=== PATIENT | male | born 1940 | race Caucasian/White ===

== ENCOUNTER 2018-01-03 10:24 | Observation (INO) | payer MEDICARE ==
[~2018-01-03] VITALS: Ht 167.6 cm; Wt 75.0 kg
[~2018-01-03 10:24] MED LIST: ASPI325T PO; TOPR50TA PO; [UNRECOGNIZED DRUG - OTHER]
[2018-01-03 10:27] VITALS: BP 147/65; PULSE 48; RESP 14; TEMP 97.7; O2SAT 98
--- NOTE | 2018-01-03 11:29 | PD ---
HPI Chief Complaint: Neuro Symptoms/ Deficits Time Seen by Provider: 11:09 Travel History International Travel<30 days: No Contact w/Intl Traveler<30days: No Traveled to known affect area: No History of Present Illness HPI 77-year-old male presents to the emergency department for evaluation of possible strokelike symptoms that started 1.5 weeks ago, on December 23, 2017. He states that his symptoms started to improve, but then became worse again over the weekend. He reports garbled speech, difficulty speaking, facial droop, unsteady gait. He states he has fallen twice in the yard since symptoms have started. Denies syncope. Denies any headache. No new visual changes. He denies any chest pain or shortness breath. No abdominal pain. No nausea, vomiting, diarrhea. Patient has history of hypertension, high cholesterol, and diabetes. His at bedside states that he had a blocked carotid, but declined treatment for it previously. He denies any pain. No exacerbating or alleviating factors. Moderate severity. Patient took his ASA this morning. He is not on anticoagulants. [facility] Past Medical History Cardiovascular Problems: Yes (HEART MUR MUR) High Cholesterol: Yes Diabetes: Yes Patient Takes Glucophage: No Hypertension: Yes (NO MEDS STS DOESNT WORK) Past Surgical History Surgical History: No Previous Surgery Social History Alcohol Use: No Tobacco Use: No (STOPPED 1983) Substance Use: No Allergies-Medications (Allergen,Severity, Reaction): Coded Allergies: No Known Allergies (Verified , 05/15/10) Reported Meds & Prescriptions Reported Meds & Active Scripts Active Toprol Xl (Metoprolol Succinate) 50 Mg Tabcr 50 Mg PO DAILY Aspirin 325 Mg Tab 325 Mg PO DAILY Reported [[facility]] Review of Systems Except as stated in HPI: all other systems reviewed are Neg Physical Exam Narrative GENERAL: Well-nourished, well-developed male patient, afebrile. Patient is alert and oriented to person, place, time. SKIN: Focused skin assessment warm/dry. HEAD: Normocephalic. Atraumatic ENT: Mucosa pink and moist. No erythema or exudates. No uvular edema. No uvular , palatal, or tonsillar deviation. Airway patent. Nasal turbinates appear normal without nasal blood, purulent drainage or septal hematoma. Bilateral tympanic membranes clear without erythema or perforation. EYES: No scleral icterus. No injection or drainage. NECK: Supple, trachea midline. No JVD or lymphadenopathy. CARDIOVASCULAR: Regular rate and rhythm without murmurs, gallops, or rubs. Bilateral radial and pedal pulses are 2+ RESPIRATORY: Breath sounds equal bilaterally. No accessory muscle use. Lung sounds are clear to auscultation. GASTROINTESTINAL: Abdomen soft, non-tender, nondistended. MUSCULOSKELETAL: No cyanosis, or edema. Bilateral upper and lower extremity strength 5/5. All extremities are neurovascularly intact. BACK: Nontender without obvious deformity. No CVA tenderness. NEUROLOGICAL: Awake and alert. Motor and sensory grossly within normal limits. Five out of 5 muscle strength in all muscle groups. Patient has intermittent garbled speech, slurred speech. Finger to nose is normal bilaterally. Heel to zhang is normal bilaterally. Right facial droop noted. Data Data Last Documented VS Vital Signs Date Time Temp Pulse Resp B/P (MAP) Pulse Ox O2 Delivery O2 Flow Rate FiO2 01/03/18 13:25 56 17 125/58 (80) 96 Room Air 01/03/18 10:27 97.7 Orders Orders Electrocardiogram (01/03/18 11:21) Prothrombin Time / Inr (Pt) (01/03/18 11:21) Act Partial Throm Time (Ptt) (01/03/18 11:21) Complete Blood Count With Diff (01/03/18 11:21) Comprehensive Metabolic Panel (01/03/18 11:21) Creatine Kinase (Cpk) (01/03/18 11:21) Troponin I (01/03/18 11:21) Urinalysis - C+S If Indicated (01/03/18 11:21) Ct Brain W/O Iv Contrast(Rout) (01/03/18 11:21) Ecg Monitoring (01/03/18 11:21) Iv Access Insert/Monitor (01/03/18 11:21) Oximetry (01/03/18 11:21) Blood Glucose (01/03/18 11:21) Sodium Chloride 0.9% Flush (Ns Flush) (01/03/18 11:30) Magnesium (Mg) (01/03/18 11:29) Admit Order (Ed Use Only) (01/03/18 13:33) Labs Laboratory Tests Test 01/03/18 11:30 6/25/18 11:33 White Blood Count 8.8 TH/MM3 Red Blood Count 4.55 MIL/MM3 Hemoglobin 14.6 GM/DL Hematocrit 42.7 % Mean Corpuscular Volume 93.7 FL Mean Corpuscular Hemoglobin 32.0 PG Mean Corpuscular Hemoglobin Concent 34.1 % Red Cell Distribution Width 12.1 % Platelet Count 361 TH/MM3 Mean Platelet Volume 8.0 FL Neutrophils (%) (Auto) 69.1 % Lymphocytes (%) (Auto) 20.3 % Monocytes (%) (Auto) 8.3 % Eosinophils (%) (Auto) 1.8 % Basophils (%) (Auto) 0.5 % Neutrophils # (Auto) 6.1 TH/MM3 Lymphocytes # (Auto) 1.8 TH/MM3 Monocytes # (Auto) 0.7 TH/MM3 Eosinophils # (Auto) 0.2 TH/MM3 Basophils # (Auto) 0.0 TH/MM3 CBC Comment DIFF FINAL Differential Comment Prothrombin Time 10.7 SEC Prothromb Time International Ratio 1.1 RATIO Activated Partial Thromboplast Time 26.0 SEC Blood Urea Nitrogen 29 MG/DL Creatinine 1.25 MG/DL Random Glucose 178 MG/DL Total Protein 6.7 GM/DL Albumin 3.4 GM/DL Calcium Level 9.5 MG/DL Alkaline Phosphatase 73 U/L Aspartate Amino Transf (AST/SGOT) 18 U/L Alanine Aminotransferase (ALT/SGPT) 19 U/L Total Bilirubin 0.3 MG/DL Sodium Level 135 MEQ/L Potassium Level 4.8 MEQ/L Chloride Level 100 MEQ/L Carbon Dioxide Level 26.5 MEQ/L Anion Gap 9 MEQ/L Estimat Glomerular Filtration Rate 56 ML/MIN Magnesium Level 2.5 MG/DL Total Creatine Kinase 89 U/L Troponin I LESS THAN 0.02 NG/ML Urine Color YELLOW Urine Turbidity CLEAR Urine pH 6.0 Urine Specific [place] 1.016 Urine Protein NEG mg/dL Urine Glucose (UA) NEG mg/dL Urine Ketones NEG mg/dL Urine Occult Blood NEG Urine Nitrite NEG Urine Bilirubin NEG Urine Urobilinogen LESS THAN 2 mg/dL Urine Leukocyte Esterase NEG Urine RBC LESS THAN 1 /hpf Urine WBC LESS THAN 1 /hpf Urine Hyaline Casts 6 /lpf Urine Mucus FEW /lpf Microscopic Urinalysis Comment CATH-CULT NOT IND MDM Medical Decision Making Medical Screen Exam Complete: Yes Emergency Medical Condition: Yes Medical Record Reviewed: Yes Interpretation(s) Last Impressions Head CT 01/03/18 1121 Signed Impressions: CONCLUSION: 1. Moderate to severe white matter ischemic changes. Remote lacunar infarct le ft basal ganglia anteriorly and right thalamus. Differential Diagnosis CVA versus TIA versus intracranial hemorrhage versus electrolyte abnormality Narrative Course 77-year-old male presents to the emergency department for evaluation of stroke symptoms that have been ongoing for approximately 1.5 weeks. He has no history of stroke in the past. EKG shows sinus bradycardia, heart rate 50, right bundle branch block. CBC, CMP, magnesium, CK, troponin, PTT, PT/INR, CT of the brain are ordered and pending. CBC shows no acute abnormality. CMP shows no acute abnormality. Magnesium is 2.5. CK is 89. Troponin is less than 0.02. Coags are unremarkable. CT of the brain shows moderate to severe white matter ischemic changes, remote lucent R infarcts left basal ganglia anteriorly and right thalamus. [facility] is paged for admission for CVA. Dr. Siegel accepted admission. Diagnosis Primary Impression: CVA (cerebral vascular accident) Qualified Codes: I63.9 - Cerebral infarction, unspecified Admitting Information Admitting Physician Requests: Admit Cori Maier Jan 03, 2018 11:29
[2018-01-03] MEDS ORDERED: SODIUM CHLORIDE 0.9% FLUSH 10 ML FLUSH IVF PRN (11:30)
[2018-01-03 11:43] LABS: AUTOMATED NEUTROPHIL # 6.1 TH/MM3 (1.8-7.7); BASOPHIL % 0.5 % (0.0-2.0); EOSINOPHIL # 0.2 TH/MM3 (0-0.4); EOSINOPHIL % 1.8 % (0.0-4.0); HEMATOCRIT 42.7 % (39.0-51.0); HEMOGLOBIN 14.6 GM/DL (13.0-17.0); LYMPH % 20.3 % (9.0-44.0); LYMPHOCYTE # 1.8 TH/MM3 (1.0-4.8); MEAN CELL VOLUME 93.7 FL (80.0-100.0); MEAN CORPUSCULAR HGB CONC 34.1 % (32.0-36.0); MONO % 8.3 % (0.0-8.0); MONOCYTE # 0.7 TH/MM3 (0-0.9); NEUT % 69.1 % (16.0-70.0); PLATELET COUNT 361 TH/MM3 (150-450); RED BLOOD COUNT 4.55 MIL/MM3 (4.50-5.90); RED CELL DISTRIBUTION WIDTH 12.1 % (11.6-17.2); WHITE BLOOD COUNT 8.8 TH/MM3 (4.0-11.0)
[2018-01-03 11:54] LABS: INTERNATIONAL NORMALIZED RATIO 1.1 RATIO; PROTHROMBIN TIME - PATIENT 10.7 SEC (9.8-11.6)
[2018-01-03 11:54] LABS: BILIRUBIN, URINE NEG (NEG); BLOOD, URINE NEG (NEG); GLUCOSE,URINE NEG (NEG); HYALINE CAST, URINE 6 /lpf (RARE); KETONE, URINE NEG (NEG); MUCUS URINE FEW /lpf (OCC); NITRITE,URINE NEG (NEG); URINE COLOR YELLOW (YELLW/STRAW); URINE LEUKOCYTE ESTERASE NEG (NEG)
[2018-01-03 12:13] LABS: ALBUMIN 3.4 GM/DL (3.4-5.0); AST (GOT) 18 U/L (15-37); BICARBONATE 26.5 MEQ/L (21.0-32.0); BLOOD UREA NITROGEN 29 MG/DL (7-18); CALCIUM 9.5 MG/DL (8.5-10.1); CHLORIDE 100 MEQ/L (98-107); CREATININE 1.25 MG/DL (0.60-1.30); GLOMERULAR FILTRATION RATE 56 ML/MIN (>89); GLUCOSE,RANDOM 178 MG/DL (74-106); SODIUM (NA) 135 MEQ/L (136-145)
[2018-01-03 12:15] LABS: ALT (GPT) 19 U/L (12-78)
[2018-01-03 12:18] LABS: ALKALINE PHOSPHATASE 73 U/L (45-117); TOTAL BILIRUBIN ADULT 0.3 MG/DL (0.2-1.0); TOTAL PROTEIN 6.7 GM/DL (6.4-8.2); TROPONIN I LESS THAN 0.02 NG/ML (0.02-0.05)
--- NOTE | 2018-01-03 12:58 | RADRPT ---
EXAM DATE: 01/03/2018 12:55 PM EDT AGE/SEX: 77 years / Male INDICATIONS: Stroke like symptoms occurred over one week ago. Patient states slurred speech and faci al droop. CLINICAL DATA: This is the patient's initial encounter. Patient reports that signs and symptoms have been present for 1 week and indicates a pain score of 0/10. MEDICAL/SURGICAL HISTORY: Hypertension. Diabetes. None. RADIATION DOSE: 56.35 CTDI (mGy) COMPARISON: No prior exams available for comparison. TECHNIQUE: CT of the head without contrast. Using automated exposure control and adjustment of the mA and/or kV according to patient size, radiation dose was kept as low as reasonably achievable to ob tain optimal diagnostic quality images. DICOM format image data is available electronically for revi ew and comparison. FINDINGS: Cerebrum: The ventricles are normal for age. Remote small infarcts in the anterior left basal gangli a and right thalamus. Moderate to severe white matter ischemic change. No evidence of midline shift, mass lesion, hemorrhage or acute infarction. No extraaxial fluid collections are seen. Posterior Fossa: The cerebellum and brainstem are intact. The 4th ventricle is midline. The cerebe llopontine angle is unremarkable. Extracranial: The visualized portion of the orbits is intact. Skull: The calvaria is intact. No evidence of skull fracture. CONCLUSION: 1. Moderate to severe white matter ischemic changes. Remote lacunar infarct left basal ganglia anter iorly and right thalamus. Electronically signed by: Harinder Perez MD 01/03/2018 12:57 PM EDT
[2018-01-03 13:25] VITALS: BP 125/58; PULSE 56; RESP 17; O2SAT 96
[2018-01-03] MEDS ORDERED: GADODIAMIDE PF 287 MG/ML 5 ML VIAL (for RAD MRI) IVCONTRAST ONE (13:36)
--- NOTE | 2018-01-03 13:48 | HHI.HP ---
HPI Service [facility] Hospitalists Primary Care Physician Dr. Arenas Admission Diagnosis CVA Chief Complaint: garbled speech Travel History International Travel<30 Days: No Contact w/Intl Traveler <30 Da: No Traveled to Known Affected Are: No History of Present Illness This is a 77 year old male patient with a past medical history which includes carotid artery stenosis, chronic kidney disease, CVA in the past with no residual effects, diabetes mellitus, hyperlipidemia, hypertension and peripheral vascular disease. Patient presents to the emergency department for garbled speech, difficulty speaking, right sided facial droop, unsteady gait. Patient reports that over a week ago he was unable to speak, having difficultly with word finding, difficult working on his computer and difficult moving his right leg. Patient felt that he was getting better then his symptoms got worse again. Patient's feels that he has been getting progressively worse. Patient also reports that patient was told over a year ago that he needed to have endarterectomy but he refused to have the operation. Patient denies chest pain, SOB, fevers, chills, N/V/D/C. Review of Systems Constitutional: DENIES: Fatigue, Fever, Chills Respiratory: DENIES: Cough, Sputum production, Shortness of breath Cardiovascular: DENIES: Chest pain, Dyspnea on Exertion, Lower Extremity Edema Gastrointestinal: DENIES: Abdominal pain, Constipation, Diarrhea, Nausea, Vomiting Neurologic: COMPLAINS OF: Abnormal gait, Localized weakness, Speech Problems Psychiatric: DENIES: Anxiety, Confusion, Depression Past Family Social History Past Medical History carotid artery disease, chronic kidney disease, CVA in the past with residual, diabetes mellitus, hyperlipidemia, hypertension and peripheral vascular disease Past Surgical History Cataract surgery, injection and trigger points, tonsillectomy and adenoidectomy Reported Medications Toprol Xl (Metoprolol Succinate) 50 Mg Tabcr 50 Mg PO DAILY Aspirin 325 Mg Tab 325 Mg PO DAILY [facility] Allergies: Coded Allergies: No Known Allergies (Verified Allergy, Unknown, 01/03/18) Family History Congestive heart failure, lung cancer Social History lives with his Denies EtOH use Tobacco use history quit smoking 28 years ago. Prior to that patient smoked 3 PPD for 46 years Physical Exam Vital Signs Vital Signs Date Time Temp Pulse Resp B/P (MAP) Pulse Ox O2 Delivery O2 Flow Rate FiO2 01/03/18 13:25 56 17 125/58 (80) 96 Room Air 01/03/18 10:27 97.7 48 14 147/65 (92) 98 Physical Exam GENERAL: This is a 77 year old male patient with garbled speech, difficultly with word finding and right facial droop HEAD: Atraumatic. Normocephalic. No temporal or scalp tenderness. EYES: Extraocular motions intact. No scleral icterus. No injection or drainage. ENT: Nose without bleeding, purulent drainage or septal hematoma. Throat without erythema, tonsillar hypertrophy or exudate. Uvula midline. Airway patent. NECK: Trachea midline. No JVD or lymphadenopathy. Supple, nontender, no meningeal signs. CARDIOVASCULAR: Regular rate and rhythm RESPIRATORY: Clear to auscultation. Breath sounds equal bilaterally. GASTROINTESTINAL: Abdomen soft, non-tender, nondistended. No hepato-splenomegaly , or palpable masses. No guarding. MUSCULOSKELETAL: Extremities without clubbing, cyanosis, or edema. No joint tenderness, effusion, or edema noted. No calf tenderness. Negative Homans sign bilaterally. NEUROLOGICAL: Awake and alert. garbled speech, difficultly with word finding and left facial droop and right lower extremity weakness. Laboratory Laboratory Tests Test 01/03/18 11:30 01/03/18 11:33 White Blood Count 8.8 Red Blood Count 4.55 Hemoglobin 14.6 Hematocrit 42.7 Mean Corpuscular Volume 93.7 Mean Corpuscular Hemoglobin 32.0 Mean Corpuscular Hemoglobin Concent 34.1 Red Cell Distribution Width 12.1 Platelet Count 361 Mean Platelet Volume 8.0 Neutrophils (%) (Auto) 69.1 Lymphocytes (%) (Auto) 20.3 Monocytes (%) (Auto) 8.3 Eosinophils (%) (Auto) 1.8 Basophils (%) (Auto) 0.5 Neutrophils # (Auto) 6.1 Lymphocytes # (Auto) 1.8 Monocytes # (Auto) 0.7 Eosinophils # (Auto) 0.2 Basophils # (Auto) 0.0 CBC Comment DIFF FINAL Differential Comment Prothrombin Time 10.7 Prothromb Time International Ratio 1.1 Activated Partial Thromboplast Time 26.0 Blood Urea Nitrogen 29 Creatinine 1.25 Random Glucose 178 Total Protein 6.7 Albumin 3.4 Calcium Level 9.5 Alkaline Phosphatase 73 Aspartate Amino Transf (AST/SGOT) 18 Alanine Aminotransferase (ALT/SGPT) 19 Total Bilirubin 0.3 Sodium Level 135 Potassium Level 4.8 Chloride Level 100 Carbon Dioxide Level 26.5 Anion Gap 9 Estimat Glomerular Filtration Rate 56 Magnesium Level 2.5 Total Creatine Kinase 89 Troponin I LESS THAN 0.02 Urine Color YELLOW Urine Turbidity CLEAR Urine pH 6.0 Urine Specific [place] 1.016 Urine Protein NEG Urine Glucose (UA) NEG Urine Ketones NEG Urine Occult Blood NEG Urine Nitrite NEG Urine Bilirubin NEG Urine Urobilinogen LESS THAN 2 Urine Leukocyte Esterase NEG Urine RBC LESS THAN 1 Urine WBC LESS THAN 1 Urine Hyaline Casts 6 Urine Mucus FEW Microscopic Urinalysis Comment CATH-CULT NOT IND Result Diagram: 01/03/18 1130 01/03/18 1130 Imaging Last Impressions Head CT 01/03/18 1121 Signed Impressions: CONCLUSION: 1. Moderate to severe white matter ischemic changes. Remote lacunar infarct le ft basal ganglia anteriorly and right thalamus. Caprini VTE Risk Assessment Caprini VTE Risk Assessment: Mod/High Risk (score >= 2) Caprini Risk Assessment Model Point Value = 1 Point Value = 2 Point Value = 3 Point Value = 5 Age 41-60 Minor surgery BMI > 25 kg/m2 Swollen legs Varicose veins or History of unexplained or recurrent spontaneous Oral contraceptives or hormone replacement Sepsis (< 1 month) Serious lung disease, including pneumonia (< 1 month) Abnormal pulmonary function Acute myocardial infarction Congestive heart failure (< 1 month) History of inflammatory bowel disease Medical patient at bed rest Age 61-74 Arthroscopic surgery Major open surgery (> 45 min) Laparoscopic surgery (> 45 min) Malignancy Confined to bed (> 72 hours) Immobilizing plaster cast Central venous access Age >= 75 History of VTE Family history of VTE Factor V Leiden Prothrombin [id number] Lupus anticoagulant Anticardiolipin antibodies Elevated serum homocysteine Heparin-induced thrombocytopenia Other congenital or acquired thrombophilia Stroke (< 1 month) Elective arthroplasty Hip, pelvis, or leg fracture Acute spinal cord injury (< 1 month) Prophylaxis Regimen Total Risk Factor Score Risk Level Prophylaxis Regimen 0-1 Low Early ambulation 2 Moderate Order ONE of the following: *Sequential Compression Device (SCD) *Heparin 5000 units SQ BID 3-4 Higher Order ONE of the following medications: *Heparin 5000 units SQ TID *Enoxaparin/Lovenox 40 mg SQ daily (WT < 150 kg, CrCl > 30 mL/min) *Enoxaparin/Lovenox 30 mg SQ daily (WT < 150 kg, CrCl > 10-29 mL/min) *Enoxaparin/Lovenox 30 mg SQ BID (WT < 150 kg, CrCl > 30 mL/min) AND/OR *Sequential Compression Device (SCD) 5 or more Highest Order ONE of the following medications: *Heparin 5000 units SQ TID (Preferred with Epidurals) *Enoxaparin/Lovenox 40 mg SQ daily (WT < 150 kg, CrCl > 30 mL/min) *Enoxaparin/Lovenox 30 mg SQ daily (WT < 150 kg, CrCl > 10-29 mL/min) *Enoxaparin/Lovenox 30 mg SQ BID (WT < 150 kg, CrCl > 30 mL/min) AND *Sequential Compression Device (SCD) Assessment and Plan Problem List: (1) CVA (cerebral vascular accident) ICD Codes: I63.9 - Cerebral infarction, unspecified Status: Acute Plan: CVA patient has had a CVA in the past CT the head reviewed and reveals moderate to severe white matter ischemic changes. Remote lacunar infarct left basal ganglia anteriorly and right thalamus. MRI, MRA ordered Patient remained on bedrest with head of bed flat Nursing bedside swallow evaluation Aspirin 325 mg now and in a.m. Ultrasound bilateral carotid arteries Continuous telemetry monitoring Holter monitor 2D echocardiogram requested HTN Patient takes amlodipine 10 mg PO daily and lisinopril 10 mg PO daily at home We will hold home blood pressure medications allow permissive hypertension up to 220/120 Carotid artery disease Patient's reports he has chronic coronary artery disease and refused treatment in the past Ultrasound bilateral carotid arteries Diabetes mellitus Accu-Cheks before meals at bedtime with sliding scale insulin coverage Hemoglobin A1c in a.m. Hyperlipidemia Continue patient's home atorvastatin 40 mg p.o. nightly and gemfibrozil 600 mg p.o. twice daily Lipid panel in a.m. DVT prophylaxis with SCDs (2) HTN (hypertension) ICD Codes: I10 - Essential (primary) hypertension Assessment and Plan Patient examined. Assessment and plan formulated with Leslie Navarro PA-C. I agree with the above. acute vs subacute cva's. concern for severe left carotid dz neurology consult and likely vascular. Problem Qualifiers (1) CVA (cerebral vascular accident): Qualified Codes: I63.9 - Cerebral infarction, unspecified Leslie Navarro Jan 03, 2018 13:48 Victorino Siegel MD Jan 03, 2018 22:17
[2018-01-03] MEDS ORDERED: ATOR40TA16 PO (13:51)
[2018-01-03] MEDS ORDERED: ASPI-516 CHEW (13:51)
[2018-01-03] MEDS ORDERED: GEMF600T PO (13:51)
[2018-01-03] MEDS ORDERED: LISI10TA3 PO (13:51)
[2018-01-03] MEDS ORDERED: AMLO10TA2 PO (13:51)
[2018-01-03] MEDS ORDERED: SODIUM CHLOR 0.9% 1000 ML INJ 1,000 ML IV SCH (13:52)
[2018-01-03 14:00] VITALS: O2SAT 96
[2018-01-03] MEDS ORDERED: SODIUM CHLORIDE 0.9% FLUSH 10 ML FLUSH IV FLUSH PRN (14:00)
[2018-01-03] MEDS ORDERED: ACETAMINOPHEN 325 MG TAB PO PRN (14:00)
[2018-01-03] MEDS ORDERED: NALOXONE HCL 0.4 MG/ML AMP IV PUSH PRN (14:00)
[2018-01-03] MEDS ORDERED: MAGNESIUM HYDROXIDE SUSP 30 ML CUP PO PRN (14:00)
[2018-01-03] MEDS ORDERED: DEXTROSE 50% IN WATER 50 ML VIAL(D50) IV PUSH PRN (14:15)
[2018-01-03] MEDS ORDERED: GLUCAGON 1 MG/ML VIAL OTHER PRN (14:15)
[2018-01-03] MEDS ORDERED: ASPIRIN 325 MG TAB PO ONE (15:00)
[2018-01-03] MEDS ORDERED: TIMO0.5S30 EACH EYE (15:24)
[2018-01-03] MEDS ORDERED: METO50TA PO (15:24)
[2018-01-03] MEDS ORDERED: NOVORP2 SQ (15:24)
[2018-01-03 16:00] VITALS: BP 182/87; PULSE 60; RESP 18; TEMP 97
[2018-01-03] MEDS: GEMFIBROZIL 600 MG TAB PO SCH (16:45)
[2018-01-03] MEDS: CLOPIDOGREL 75 MG TAB PO SCH (16:45)
[2018-01-03] MEDS: INSULIN ASPART SUPPLEMENTAL SCALE SQ SCH ×2 (17:00→21:51)
--- NOTE | 2018-01-03 17:27 | ECHRPT ---
Indication: CONCLUSIONS The left ventricular systolic function is hyperdynamic with an estimated ejection fraction in the ra nge of 65- 70%. Normal left ventricular size. Mild concentric left ventricular hypertrophy. No regional wall motion abnormalities are present. Trace mitral valve regurgitation. BP: / HR: Rhythm: Sinus MEASUREMENTS (Male / Female) Normal Values Technical Quality:Poor 2D ECHO LV Diastolic Diameter PLAX 2.9 cm 4.2 - 5.9 / 3.9 - 5.3 cm LV Systolic Diameter PLAX 2.0 cm IVS Diastolic Thickness 1.5 cm 0.6 - 1.0 / 0.6 - 0.9 cm LVPW Diastolic Thickness 1.4 cm 0.6 - 1.0 / 0.6 - 0.9 cm LV Relative Wall Thickness 1.0 LVOT Diameter 1.9 cm M-MODE Aortic Root Diameter MM 2.6 cm AV Cusp Separation MM 1.9 cm DOPPLER AV Peak Velocity 136.0 cm/s AV Peak Gradient 7.4 mmHg LVOT Peak Velocity 115.0 cm/s LVOT Peak Gradient 5.3 mmHg AV Area Cont Eq pk 2.4 cm MV Area PHT 2.6 cm Mitral E Point Velocity 76.5 cm/s Mitral A Point Velocity 104.0 cm/s Mitral E to A Ratio 0.7 LV E' Lateral Velocity 6.2 cm/s Mitral E to LV E' Lateral Ratio 12.3 LV E' Septal Velocity 5.1 cm/s Mitral E to LV E' Septal Ratio 15.1 PV Peak Velocity 107.0 cm/s PV Peak Gradient 4.6 mmHg FINDINGS LEFT VENTRICLE The left ventricular systolic function is hyperdynamic with an estimated ejection fraction in the ra nge of 65- 70%. Normal left ventricular size. Mild concentric left ventricular hypertrophy. No regional wall motion abnormalities are present. RIGHT VENTRICLE Normal right ventricular size and systolic function. LEFT ATRIUM The left atrial size is normal. RIGHT ATRIUM The right atrial size is normal. ATRIAL SEPTUM Normal atrial septal thickness without atrial level shunting by limited color doppler interrogation. AORTA The aortic root and proximal ascending aorta are normal in size on limited imaging. MITRAL VALVE Structurally normal mitral valve. Trace mitral valve regurgitation. AORTIC VALVE Trileaflet aortic valve. No aortic valve stenosis or regurgitation. TRICUSPID VALVE Structurally normal tricuspid valve. No tricuspid valve stenosis or regurgitation. PULMONARY VALVE The pulmonary valve is not well visualized. VESSELS The inferior vena cava is normal in size. PERICARDIUM No pericardial effusion. Traci Hanson MD, FACC (Electronically Signed) Final Date:03 January 2018 17:25
[2018-01-03 18:28] LABS: FOLATE GREATER THAN 20.0 NG/ML (3.1-17.5)
--- NOTE | 2018-01-03 19:36 | RADRPT ---
EXAM DATE: 01/03/2018 7:07 PM EDT AGE/SEX: 77 years / Male INDICATIONS: CVA. Slurred speech with facial droop. CLINICAL DATA: This is the patient's initial encounter. Patient reports that signs and symptoms have been present for 1 day and indicates a pain score of 3/10. MEDICAL/SURGICAL HISTORY: Hypertension. Diabetes mellitus type II. None. COMPARISON: [facility], MRI BRAIN W & W/O CONTRAST, 01/03/2018. [facility], CTA CAROTID ARTERIES, 06/18/2017. . TECHNIQUE: 3D [id number] MRA was performed. Source images, multiplanar STS MIP, and 3D volum e MIP reconstructions were reviewed. FINDINGS: There is no significant flow related enhancement within the left intracranial internal carotid artery or within the left A1 segment. Right internal carotid artery is within normal limits without signifi cant narrowing. Right A1 segment is normal. The anterior cerebral arteries are symmetric. There is a patent anterior communicating artery. Right middle cerebral artery branches demonstrate normal flow r elated enhancement. There is minimal flow related enhancement within the left middle cerebral artery branches. Posterior circulation demonstrates patent vertebral arteries bilaterally. Basilar artery demonstrates no abnormality. There is a persistent circulation on the right. The mid right posterior cerebr al artery demonstrates a focal area of luminal narrowing just distal to the cerebral peduncle. Left p osterior cerebral arteries within normal limits. CONCLUSION: 1. High-grade stenosis versus occlusion of the intracranial left internal carotid artery and left A1 segment. There is also minimal flow related enhancement visualized within the left middle cerebral a rtery branches. 2. Focal area of luminal narrowing in the mid right posterior cerebral artery. 3. The left anterior cerebral artery is filling through the anterior communicating artery. Electronically signed by: Gasper Kellogg MD 01/03/2018 7:34 PM EDT
--- NOTE | 2018-01-03 20:01 | RADRPT ---
EXAM DATE: 01/03/2018 7:25 PM EDT AGE/SEX: 77 years / Male INDICATIONS: CVA. Slurred speech with facial droop. CLINICAL DATA: This is the patient's initial encounter. Patient reports that signs and symptoms have been present for 1 day and indicates a pain score of 2/10. MEDICAL/SURGICAL HISTORY: Hypertension. Diabetes mellitus type II. None. COMPARISON: No prior exams available for comparison. TECHNIQUE: Multiplanar, multisequence examination of the brain was performed without and with 20 ml O mniscan (gadodiamide) contrast as a single exam dose. FINDINGS: Cerebrum: There is mild generalized atrophy with ventricular size within normal limits given the degr ee of atrophy. No midline shift, mass lesion, or hemorrhage. There are multifocal areas of restricte d diffusion representing recent ischemia in the left basal ganglia and left periventricular white mat ter. No extraaxial fluid collections are seen. The pituitary gland and suprasellar cistern are norm al in configuration. There is lack of normal flow void within the left internal carotid artery. White Matter: There is severe periventricular and subcortical white matter signal change. Posterior Fossa: The cerebellum and brainstem demonstrate no acute abnormality. The 4th ventricle is midline. The cerebellopontine angle is within normal limits. The cerebellar tonsils are normal in p osition. Diffusion Imaging: There are multifocal areas of restricted diffusion in the left frontal periventri cular white matter, left temporal lobe periventricular white matter and left basal ganglia. The large st confluent area measures slightly greater than 3 cm. Post contrast: There is asymmetric enhancement in the left basal ganglia adjacent to the areas of isc hemia. Extracranial: The visualized sinuses are clear. CONCLUSION: 1. Multifocal areas of restricted diffusion representing recent ischemia in the left periventricular region and left basal ganglia. Signal change within the left internal carotid artery suggest vascula r occlusion. 2. Nonspecific area of enhancement in the left basal ganglia adjacent to the areas of infarct. This could be related to the a recent ischemia but suggest attention to this at follow-up imaging. 3. Severe chronic periventricular white matter changes representing chronic microvascular ischemic c hange. Electronically signed by: Gasper Kellogg MD 01/03/2018 8:00 PM EDT
[2018-01-03 20:06] VITALS: BP 168/72; PULSE 68; RESP 18; TEMP 98.8; O2SAT 98
[2018-01-03] MEDS: DOCUSATE SODIUM 50 MG/SENNA 8.6 MG TAB PO SCH (21:40)
[2018-01-03] MEDS: ATORVASTATIN 40 MG TAB PO SCH (21:40)
[2018-01-03] MEDS: TIMOLOL MALEATE 0.5% OPHT SOLN 5 ML BTL EACH EYE SCH (21:40)
[2018-01-03] MEDS: SODIUM CHLOR 0.9% 1000 ML INJ 1,000 ML IV SCH (21:53)
[2018-01-03] MEDS: SODIUM CHLORIDE 0.9% FLUSH 10 ML FLUSH IV FLUSH SCH (21:53)
--- NOTE | 2018-01-03 22:22 | EKG ---
Date Performed: 01/03/2018 Time Performed: 10:55:47 PTAGE: 77 years EKG: SINUS BRADYCARDIA RIGHT BUNDLE BRANCH BLOCK ABNORMAL ECG INTERPRETATION BASED ON A DEFAULT AGE OF 40 YEARS PREVIOUS TRACING : 05/15/2010 11.27 Since the previous tracing, rate has decreased otherw ise no change DOCTOR: Michael Sosa Interpretating Date/Time 01/03/2018 22:22:17
--- NOTE | 2018-01-03 23:17 | RADRPT ---
EXAM DATE: 01/03/2018 8:42 PM EDT AGE/SEX: 77 years / Male INDICATIONS: . Slurred speech with facial droop. CLINICAL DATA: This is the patient's initial encounter. Patient reports that signs and symptoms have been present for 1 day and indicates a pain score of 1/10. MEDICAL/SURGICAL HISTORY: Hypertension. Diabetes mellitus type II. None. COMPARISON: No prior exams available for comparison. TECHNIQUE: 20 ml Omniscan (gadodiamide) contrast infused MRA (single exam dose) of the extracranial circulation was performed using a neurovascular coil. Postprocessing was performed, including rotat ing sub-volume maximum intensity projections of each carotid artery, rotating full-volume maximum int ensity projections of both carotid arteries, sagittal and coronal sliding thin-slab reformations of e ach carotid artery, and left oblique sliding thin-slab reformation through the aortic arch to include the origin of the arch branch vessels. FINDINGS: Aortic Arch : There is a three-vessel origin of the great vessels from the aorta. There is occlusi on of the left common carotid artery 1.8 cm from its origin. This does appear to be some stenosis at the left common carotid artery origin. Right Carotid : The common carotid artery is intact. There is plaque at the carotid bulb region. Th ere appears to be at least a 50% narrowing at the proximal right internal carotid artery. The externa l carotid artery is intact. Left Carotid : There is occlusion of the proximal left common carotid artery 1.8 cm from its origin. Vertebrals : The vertebral arteries have a symmetric diameter. No stenotic lesions are seen. CONCLUSION: 1. 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 2. At least 50% stenosis of the right proximal internal carotid artery at the carotid bulb region. Percent stenosis is calculated using the diameter of the stenotic region over the diameter of the nor mal distal internal carotid artery Electronically signed by: Gasper Conley MD 01/03/2018 11:16 LORINT
[2018-01-04] VITALS (10 sets, daily range): BP systolic 139–216; BP diastolic 72–100; PULSE 57–101; RESP 16–20; TEMP 97.7–98.5; O2SAT 94–98
[2018-01-04] MEDS: SODIUM CHLOR 0.9% 1000 ML INJ 1,000 ML IV SCH ×4 (05:58→22:31)
[2018-01-04 06:29] LABS: AUTOMATED NEUTROPHIL # 4.2 TH/MM3 (1.8-7.7); BASOPHIL % 0.6 % (0.0-2.0); EOSINOPHIL # 0.2 TH/MM3 (0-0.4); EOSINOPHIL % 3.1 % (0.0-4.0); HEMATOCRIT 42.1 % (39.0-51.0); HEMOGLOBIN 14.3 GM/DL (13.0-17.0); LYMPH % 27.7 % (9.0-44.0); LYMPHOCYTE # 2.1 TH/MM3 (1.0-4.8); MEAN CELL VOLUME 93.4 FL (80.0-100.0); MEAN CORPUSCULAR HEMOGLOBIN 31.8 PG (27.0-34.0); MEAN CORPUSCULAR HGB CONC 34.1 % (32.0-36.0); MONO % 12.2 % (0.0-8.0); MONOCYTE # 0.9 TH/MM3 (0-0.9); NEUT % 56.4 % (16.0-70.0); PLATELET COUNT 316 TH/MM3 (150-450); RED BLOOD COUNT 4.51 MIL/MM3 (4.50-5.90); RED CELL DISTRIBUTION WIDTH 12.4 % (11.6-17.2); WHITE BLOOD COUNT 7.4 TH/MM3 (4.0-11.0)
--- NOTE | 2018-01-04 07:07 | HHI.PR ---
Subjective Remarks sr Objective Vital Signs Date Time Temp Pulse Resp B/P (MAP) Pulse Ox O2 Delivery O2 Flow Rate FiO2 01/04/18 05:24 98.4 78 18 158/82 (107) 96 01/04/18 01:57 97.9 57 16 165/72 (103) 95 01/03/18 20:06 98.8 68 18 168/72 (104) 98 01/03/18 16:00 97.0 60 18 182/87 (118) 01/03/18 14:00 96 21 01/03/18 13:25 56 17 125/58 (80) 96 Room Air 01/03/18 10:27 97.7 48 14 147/65 (92) 98 I/O 01/03/18 01/03/18 01/03/18 01/04/18 01/04/18 01/04/18 07:00 15:00 23:00 07:00 15:00 23:00 Intake Total 200 ml 200 ml Balance 200 ml 200 ml Intake Oral 200 ml 200 ml Result Diagram: 01/04/18 0540 01/03/18 1130 Objective Remarks vff mild slurred speech 5/5 rue rle Assessment and Plan Assessment and Plan imp left cca occluded no flow left mca mult cva deep left labs ok ldl pend 50% right ica keep hob down ivf and bp up may be able to dc tomorrow late Sam Fjaardo MD Jan 04, 2018 07:07
[2018-01-04 07:13] LABS: BICARBONATE 24.3 MEQ/L (21.0-32.0); CALCIUM 8.7 MG/DL (8.5-10.1); CHOLESTEROL/ HDL RATIO 3.22 RATIO; CREATININE 0.93 MG/DL (0.60-1.30)
--- NOTE | 2018-01-04 08:08 | MB ---
cc: Sam Fajardo MD DATE: 01/03/2018 HISTORY OF PRESENT ILLNESS: This is a 77-year-old right-handed man with insulin-dependent diabetes, hypercholesterolemia. He does take aspirin 325 a day and he has a known 90% left carotid artery stenosis and 70% on the right. He does not take a statin. He was evidently going to try to schedule surgery, but had not get it done yet. Nevertheless, about 8 days ago, he began to have troubles talking, seemed to get better for 4 days and then worse for 4 days. He never had any vision loss in one eye, asymmetrical weakness or numbness. He denies any headache, chest pain or palpitations. REVIEW OF SYSTEMS: He denies any hypertension, NH, stent, angioplasty, AFib, Coumadin, renal, hepatic or pulmonary disease, thyroid disease, lupus, ulcer, cancer, seizure or stroke. SOCIAL HISTORY: Nonsmoker, drinker, lives with his . FAMILY HISTORY: Positive for cancer in his father , stroke. ALLERGIES: NO KNOWN DRUG ALLERGIES. MEDICATIONS: Toprol, aspirin 325. PHYSICAL EXAMINATION: VITAL SIGNS: Afebrile, , 14, 147/65. NECK: There is a very loud and low pitched right carotid bruit, nothing on the left. HEART: Regular rhythm with a 1/6 systolic ejection murmur. NEUROLOGIC: Pupils are equal. Visual bower are full. Extraocular movements intact, without nystagmus. Face has a slight right facial droop, then he moves fairly well. Tongue was midline. Face sensation was intact to pinprick. There is no drift. He has normal strength in upper and lower extremities bilaterally. DTRs are trace throughout. Toes downgoing bilaterally. Pinprick is intact throughout. He is [id number]. He can name, repeat and calculate well. Speech is just slightly slurred. LABORATORY DATA: CBC is normal. UA is negative on 01/03. BMP essentially unremarkable. Glucose 178. LFTs are normal. CPK is normal. Troponins negative. Albumin is normal. Coags normal. IMAGING: He had a CAT scan of his brain, showed some white matter changes and remote left basal ganglia infarct. ECHOCARDIOGRAM: Shows sinus rhythm. IMPRESSION: Likely a small left infarct about a week ago. He has some known carotid disease. His CT, I reviewed, and shows an old left fairly large by the head of the caudate infarct, lateral to the head of the caudate. Also, an old right thalamic infarct and some other white matter changes also bilaterally. PLAN: History of carotid disease, looks like a stroke here. For now, we will put him on Plavix. He was started on Lipitor. We will check his LDL and keep him on aspirin for now and check an MRI of the brain, MRA [place] and neck and echocardiogram. I will be following him within the hospital. MD CHRIS Avery/NIKIHL , 04:41 PM , 05:31 PM
[2018-01-04] MEDS: INSULIN ASPART SUPPLEMENTAL SCALE SQ SCH ×4 (09:25→22:31)
--- NOTE | 2018-01-04 09:34 | HHI.PR ---
Subjective Remarks Patient reports feeling about the same as yesterday continues to have slight right facial droop and difficult with some word finding Objective Vitals Vital Signs Date Time Temp Pulse Resp B/P (MAP) Pulse Ox O2 Delivery O2 Flow Rate FiO2 01/04/18 08:50 97 21 01/04/18 08:00 97.7 83 20 139/84 (102) 96 01/04/18 05:24 98.4 78 18 158/82 (107) 96 01/04/18 01:57 97.9 57 16 165/72 (103) 95 01/03/18 20:06 98.8 68 18 168/72 (104) 98 01/03/18 16:00 97.0 60 18 182/87 (118) 01/03/18 14:00 96 21 01/03/18 13:25 56 17 125/58 (80) 96 Room Air 01/03/18 10:27 97.7 48 14 147/65 (92) 98 Result Diagram: 01/04/18 0540 01/04/18 0540 Other Results Laboratory Tests Test 01/03/18 11:30 01/03/18 11:33 01/04/18 05:40 White Blood Count 8.8 TH/MM3 7.4 TH/MM3 Red Blood Count 4.55 MIL/MM3 4.51 MIL/MM3 Hemoglobin 14.6 GM/DL 14.3 GM/DL Hematocrit 42.7 % 42.1 % Mean Corpuscular Volume 93.7 FL 93.4 FL Mean Corpuscular Hemoglobin 32.0 PG 31.8 PG Mean Corpuscular Hemoglobin Concent 34.1 % 34.1 % Red Cell Distribution Width 12.1 % 12.4 % Platelet Count 361 TH/MM3 316 TH/MM3 Mean Platelet Volume 8.0 FL 8.0 FL Neutrophils (%) (Auto) 69.1 % 56.4 % Lymphocytes (%) (Auto) 20.3 % 27.7 % Monocytes (%) (Auto) 8.3 % 12.2 % Eosinophils (%) (Auto) 1.8 % 3.1 % Basophils (%) (Auto) 0.5 % 0.6 % Neutrophils # (Auto) 6.1 TH/MM3 4.2 TH/MM3 Lymphocytes # (Auto) 1.8 TH/MM3 2.1 TH/MM3 Monocytes # (Auto) 0.7 TH/MM3 0.9 TH/MM3 Eosinophils # (Auto) 0.2 TH/MM3 0.2 TH/MM3 Basophils # (Auto) 0.0 TH/MM3 0.0 TH/MM3 CBC Comment DIFF FINAL DIFF FINAL Differential Comment Prothrombin Time 10.7 SEC Prothromb Time International Ratio 1.1 RATIO Activated Partial Thromboplast Time 26.0 SEC Blood Urea Nitrogen 29 MG/DL 22 MG/DL Creatinine 1.25 MG/DL 0.93 MG/DL Random Glucose 178 MG/DL 119 MG/DL Total Protein 6.7 GM/DL Albumin 3.4 GM/DL Calcium Level 9.5 MG/DL 8.7 MG/DL Alkaline Phosphatase 73 U/L Aspartate Amino Transf (AST/SGOT) 18 U/L Alanine Aminotransferase (ALT/SGPT) 19 U/L Total Bilirubin 0.3 MG/DL Sodium Level 135 MEQ/L 141 MEQ/L Potassium Level 4.8 MEQ/L 4.3 MEQ/L Chloride Level 100 MEQ/L 108 MEQ/L Carbon Dioxide Level 26.5 MEQ/L 24.3 MEQ/L Anion Gap 9 MEQ/L 9 MEQ/L Estimat Glomerular Filtration Rate 56 ML/MIN 78 ML/MIN Magnesium Level 2.5 MG/DL Total Creatine Kinase 89 U/L Troponin I LESS THAN 0.02 NG/ML Vitamin B12 Level GREATER THAN 2000 PG/ML Folate GREATER THAN 20.0 NG/ML Free Thyroxine 1.00 NG/DL Thyroid Stimulating Hormone 3rd Gen 0.610 uIU/ML Urine Color YELLOW Urine Turbidity CLEAR Urine pH 6.0 Urine Specific [place] 1.016 Urine Protein NEG mg/dL Urine Glucose (UA) NEG mg/dL Urine Ketones NEG mg/dL Urine Occult Blood NEG Urine Nitrite NEG Urine Bilirubin NEG Urine Urobilinogen LESS THAN 2 mg/dL Urine Leukocyte Esterase NEG Urine RBC LESS THAN 1 /hpf Urine WBC LESS THAN 1 /hpf Urine Hyaline Casts 6 /lpf Urine Mucus FEW /lpf Microscopic Urinalysis Comment CATH-CULT NOT IND Triglycerides Level 163 MG/DL Cholesterol Level 142 MG/DL LDL Cholesterol 65 MG/DL HDL Cholesterol 44.0 MG/DL Cholesterol/HDL Ratio 3.22 RATIO Imaging Last Impressions Head CT 01/03/18 1121 Signed Impressions: CONCLUSION: 1. Moderate to severe white matter ischemic changes. Remote lacunar infarct le ft basal ganglia anteriorly and right thalamus. Objective Remarks GENERAL: This is a 77 year old male patient with right facial droop and difficultly with word finding HEAD: Atraumatic. Normocephalic. No temporal or scalp tenderness. EYES: Extraocular motions intact. No scleral icterus. No injection or drainage. CARDIOVASCULAR: Regular rate and rhythm RESPIRATORY: Clear to auscultation. Breath sounds equal bilaterally. GASTROINTESTINAL: Abdomen soft, non-tender, nondistended. No hepato-splenomegaly , or palpable masses. No guarding. MUSCULOSKELETAL: Extremities without clubbing, cyanosis, or edema. No joint tenderness, effusion, or edema noted. No calf tenderness. Negative Homans sign bilaterally. NEUROLOGICAL: Awake and alert. difficultly with word finding and slight right facial droop A/P Problem List: (1) CVA (cerebral vascular accident) ICD Codes: I63.9 - Cerebral infarction, unspecified Status: Acute Plan: CVA patient has had a CVA in the past CT the head reviewed and reveals moderate to severe white matter ischemic changes. Remote lacunar infarct left basal ganglia anteriorly and right thalamus. MRI reviewed and reveals 1. Multifocal areas of restricted diffusion representing recent ischemia in the left periventricular region and left basal ganglia. Signal change within the left internal carotid artery suggest vascular occlusion. 2. Nonspecific area of enhancement in the left basal ganglia adjacent to the areas of infarct. This could be related to the a recent ischemia but suggest attention to this at follow-up imaging. 3. Severe chronic periventricular white matter changes representing chronic microvascular ischemic change. MRA reviewed and reveals 1. High-grade stenosis versus occlusion of the intracranial left internal carotid artery and left A1 segment. There is also minimal flow related enhancement visualized within the left middle cerebral artery branches. 2. Focal area of luminal narrowing in the mid right posterior cerebral artery. 3. The left anterior cerebral artery is filling through the anterior communicating artery. Neck MRA reviewed and reveals 1 occlusion of the left common carotid artery 1.8 cm from its origin. 2. at least 50% stenosis of the right proximal internal carotid artery at the carotid bulb region. Patient remained on bedrest with head of bed flat Aspirin 325 mg now and in a.m. Continuous telemetry monitoring Holter monitor 2D echocardiogram 01/03/18: The left ventricular systolic function is hyperdynamic with an estimated ejection fraction in the range of 65-70%. Normal left ventricular size. Mild concentric left ventricular hypertrophy. No regional wall motion abnormalities are present. Trace mitral valve regurgitation. Speech therapy recommending reg diet with thin liquids Consult neurology, appreciate recommendations: started patient on Plavix, recommend HOB flat and permissive HTN for today possible DC tomorrow evening HTN Patient takes amlodipine 10 mg PO daily and lisinopril 10 mg PO daily at home We will hold home blood pressure medications allow permissive hypertension up to 220/120 Carotid artery disease Patient's reports he has chronic coronary artery disease and refused treatment in the past Neck MRA reviewed and reveals 1 occlusion of the left common carotid artery 1.8 cm from its origin. 2. at least 50% stenosis of the right proximal internal carotid artery at the carotid bulb region. Patient will need close outpatient follow up of carotid stenosis Diabetes mellitus Accu-Cheks before meals at bedtime with sliding scale insulin coverage Hemoglobin A1c in a.m. Hyperlipidemia Continue patient's home atorvastatin 40 mg p.o. nightly and gemfibrozil 600 mg p.o. twice daily Lipid panel reviewed and reveals triglycerides 163 total cholesterol 142 LDL 65 HDL 44 DVT prophylaxis with SCDs (2) HTN (hypertension) ICD Codes: I10 - Essential (primary) hypertension Assessment and Plan Patient examined. Assessment and plan formulated with Leslie Navarro PA-C. I agree with the above. acute cva. left carotid occlusion. discussed with neuro hob flat and ivf with possible dc tomorrow on plavix/asa. Problem Qualifiers (1) CVA (cerebral vascular accident): Qualified Codes: I63.9 - Cerebral infarction, unspecified Leslie Navarro Jan 04, 2018 09:34 Victorino Siegel MD Jan 04, 2018 15:47
[2018-01-04] MEDS ORDERED: PLAV75TA29 PO (09:36)
--- NOTE | 2018-01-04 09:37 | HHI.FF ---
Face to Face Verification Diagnosis: (1) Carotid stenosis (2) CVA (cerebral vascular accident) (3) HTN (hypertension) Speech Therapy Order: To Improve: Speech and communication skills, Cognitive skills, Swallowing Home Health Nursing Order: Medical education Signs/symptoms of disease process Medication education-adverse effect Nursing assessment with vital signs Computer Applications Developer Order: To Evaluate: Living conditions/environment, Support services Order: To Provide: Long range planning, Community services I have seen patient Kev Knapp on 01/04/18. My clinical findings support the need for the requested home health care services because: Med compliance is questionable Limited ability to care for self Impaired cognition/judgement I certify that my clinical findings support that this patient is homebound because: Unsafe to leave home unassisted Leslie Navarro Jan 04, 2018 09:37 Victorino Siegel MD Jan 05, 2018 10:43
--- NOTE | 2018-01-04 09:38 | HHI.DCPOC ---
Discharge Care Plan Diagnosis: (1) CVA (cerebral vascular accident) (2) HTN (hypertension) (3) Carotid stenosis Goals to Promote Your Health * To prevent worsening of your condition and complications * To maintain your health at the optimal level Directions to Meet Your Goals Take your medications as prescribed Follow your dietary instruction Follow activity as directed Keep your appointments as scheduled Take your immunizations and boosters as scheduled If your symptoms worsen call your PCP, if no PCP go to Urgent Care Center or Emergency Room Smoking is Dangerous to Your Health. Avoid second hand smoke Call the 24-hour hour crisis hotline for domestic abuse at Leslie Navarro Jan 04, 2018 09:38
[2018-01-04] MEDS: DOCUSATE SODIUM 50 MG/SENNA 8.6 MG TAB PO SCH ×2 (11:01→20:58)
[2018-01-04] MEDS: GEMFIBROZIL 600 MG TAB PO SCH ×2 (11:01→16:00)
[2018-01-04] MEDS: ASPIRIN 325 MG TAB PO SCH (11:01)
[2018-01-04] MEDS: CLOPIDOGREL 75 MG TAB PO SCH (11:02)
[2018-01-04] MEDS: SODIUM CHLORIDE 0.9% FLUSH 10 ML FLUSH IV FLUSH SCH ×2 (11:02→20:58)
[2018-01-04] MEDS: TIMOLOL MALEATE 0.5% OPHT SOLN 5 ML BTL EACH EYE SCH ×2 (11:03→20:58)
[2018-01-04] MEDS: ATORVASTATIN 40 MG TAB PO SCH (20:58)
[2018-01-04] MEDS ORDERED: ENALAPRILAT 1.25 MG/ML VIAL IV PRN (23:00)
[2018-01-05 02:25] VITALS: PULSE 69
[2018-01-05 03:44] VITALS: BP 131/65; PULSE 67; RESP 17; TEMP 98.5; O2SAT 97
[2018-01-05] MEDS: SODIUM CHLOR 0.9% 1000 ML INJ 1,000 ML IV SCH (04:26)
[2018-01-05 07:00] VITALS: PULSE 68
[2018-01-05 07:14] VITALS: BP 188/86; PULSE 79; RESP 12; TEMP 97.8; O2SAT 97
--- NOTE | 2018-01-05 07:44 | HHI.PR ---
Subjective Remarks sr Objective Vital Signs Date Time Temp Pulse Resp B/P (MAP) Pulse Ox O2 Delivery O2 Flow Rate FiO2 01/05/18 07:14 97.8 79 12 188/86 (120) 97 01/05/18 03:44 98.5 67 17 131/65 (87) 97 01/05/18 02:25 69 01/04/18 23:31 98.4 77 17 149/80 (103) 97 01/04/18 20:03 96 200/91 (127) 01/04/18 20:00 98 21 01/04/18 19:44 98.5 101 16 216/100 (138) 98 01/04/18 16:00 98.3 82 20 163/79 (107) 96 01/04/18 12:00 97.8 93 19 178/72 (107) 94 01/04/18 08:50 97 21 01/04/18 08:00 97.7 83 20 139/84 (102) 96 I/O 01/04/18 01/04/18 01/04/18 01/05/18 01/05/18 01/05/18 07:00 15:00 23:00 07:00 15:00 23:00 Intake Total 200 ml Output Total 450 ml Balance 200 ml -450 ml Intake Oral 200 ml Output Urine Total 450 ml # Bowel Movements 0 Result Diagram: 01/04/18 0540 01/04/18 0540 Objective Remarks vff nlspeech 5/ rue rle Assessment and Plan Assessment and Plan imp left cca occluded no flow left mca mult cva deep left labs ok ldl nl 50% right ica echo nl hob up oob can dc at noon if stable walking around this am fu my office 3 weeks fu holter dc asa in 3 days Sam Fajardo MD Jan 05, 2018 07:44
[2018-01-05] MEDS: CLOPIDOGREL 75 MG TAB PO SCH (08:34)
[2018-01-05] MEDS: DOCUSATE SODIUM 50 MG/SENNA 8.6 MG TAB PO SCH (08:34)
[2018-01-05] MEDS: GEMFIBROZIL 600 MG TAB PO SCH (08:34)
[2018-01-05] MEDS: ASPIRIN 325 MG TAB PO SCH (08:35)
[2018-01-05] MEDS: INSULIN ASPART SUPPLEMENTAL SCALE SQ SCH ×2 (08:35→13:53)
[2018-01-05] MEDS: TIMOLOL MALEATE 0.5% OPHT SOLN 5 ML BTL EACH EYE SCH (08:37)
[2018-01-05] MEDS: SODIUM CHLORIDE 0.9% FLUSH 10 ML FLUSH IV FLUSH SCH (09:00)
[2018-01-05] MEDS ORDERED: LISINOPRIL 10 MG TAB PO SCH (09:45)
[2018-01-05 09:48] VITALS: BP 172/82; PULSE 78
--- NOTE | 2018-01-05 09:48 | HHI.PR ---
Subjective Remarks Pt without any new complaints He is anxious to go home today Pt ambulated with PT yesterday with no recommendations for home PT Objective Vitals Vital Signs Date Time Temp Pulse Resp B/P (MAP) Pulse Ox O2 Delivery O2 Flow Rate FiO2 01/05/18 07:14 97.8 79 12 188/86 (120) 97 01/05/18 03:44 98.5 67 17 131/65 (87) 97 01/05/18 02:25 69 01/04/18 23:31 98.4 77 17 149/80 (103) 97 01/04/18 20:03 96 200/91 (127) 01/04/18 20:00 98 21 01/04/18 19:44 98.5 101 16 216/100 (138) 98 01/04/18 16:00 98.3 82 20 163/79 (107) 96 01/04/18 12:00 97.8 93 19 178/72 (107) 94 Result Diagram: 01/04/18 0540 01/04/18 0540 Other Results Laboratory Tests Test 01/03/18 11:30 01/03/18 11:33 01/04/18 05:40 White Blood Count 8.8 TH/MM3 7.4 TH/MM3 Red Blood Count 4.55 MIL/MM3 4.51 MIL/MM3 Hemoglobin 14.6 GM/DL 14.3 GM/DL Hematocrit 42.7 % 42.1 % Mean Corpuscular Volume 93.7 FL 93.4 FL Mean Corpuscular Hemoglobin 32.0 PG 31.8 PG Mean Corpuscular Hemoglobin Concent 34.1 % 34.1 % Red Cell Distribution Width 12.1 % 12.4 % Platelet Count 361 TH/MM3 316 TH/MM3 Mean Platelet Volume 8.0 FL 8.0 FL Neutrophils (%) (Auto) 69.1 % 56.4 % Lymphocytes (%) (Auto) 20.3 % 27.7 % Monocytes (%) (Auto) 8.3 % 12.2 % Eosinophils (%) (Auto) 1.8 % 3.1 % Basophils (%) (Auto) 0.5 % 0.6 % Neutrophils # (Auto) 6.1 TH/MM3 4.2 TH/MM3 Lymphocytes # (Auto) 1.8 TH/MM3 2.1 TH/MM3 Monocytes # (Auto) 0.7 TH/MM3 0.9 TH/MM3 Eosinophils # (Auto) 0.2 TH/MM3 0.2 TH/MM3 Basophils # (Auto) 0.0 TH/MM3 0.0 TH/MM3 CBC Comment DIFF FINAL DIFF FINAL Differential Comment Prothrombin Time 10.7 SEC Prothromb Time International Ratio 1.1 RATIO Activated Partial Thromboplast Time 26.0 SEC Blood Urea Nitrogen 29 MG/DL 22 MG/DL Creatinine 1.25 MG/DL 0.93 MG/DL Random Glucose 178 MG/DL 119 MG/DL Total Protein 6.7 GM/DL Albumin 3.4 GM/DL Calcium Level 9.5 MG/DL 8.7 MG/DL Alkaline Phosphatase 73 U/L Aspartate Amino Transf (AST/SGOT) 18 U/L Alanine Aminotransferase (ALT/SGPT) 19 U/L Total Bilirubin 0.3 MG/DL Sodium Level 135 MEQ/L 141 MEQ/L Potassium Level 4.8 MEQ/L 4.3 MEQ/L Chloride Level 100 MEQ/L 108 MEQ/L Carbon Dioxide Level 26.5 MEQ/L 24.3 MEQ/L Anion Gap 9 MEQ/L 9 MEQ/L Estimat Glomerular Filtration Rate 56 ML/MIN 78 ML/MIN Magnesium Level 2.5 MG/DL Total Creatine Kinase 89 U/L Troponin I LESS THAN 0.02 NG/ML Vitamin B12 Level GREATER THAN 2000 PG/ML Folate GREATER THAN 20.0 NG/ML Free Thyroxine 1.00 NG/DL Thyroid Stimulating Hormone 3rd Gen 0.610 uIU/ML Urine Color YELLOW Urine Turbidity CLEAR Urine pH 6.0 Urine Specific Lindsay 1.016 Urine Protein NEG mg/dL Urine Glucose (UA) NEG mg/dL Urine Ketones NEG mg/dL Urine Occult Blood NEG Urine Nitrite NEG Urine Bilirubin NEG Urine Urobilinogen LESS THAN 2 mg/dL Urine Leukocyte Esterase NEG Urine RBC LESS THAN 1 /hpf Urine WBC LESS THAN 1 /hpf Urine Hyaline Casts 6 /lpf Urine Mucus FEW /lpf Microscopic Urinalysis Comment CATH-CULT NOT IND Triglycerides Level 163 MG/DL Cholesterol Level 142 MG/DL LDL Cholesterol 65 MG/DL HDL Cholesterol 44.0 MG/DL Cholesterol/HDL Ratio 3.22 RATIO Imaging Last Impressions Head CT 01/03/18 1121 Signed Impressions: CONCLUSION: 1. Moderate to severe white matter ischemic changes. Remote lacunar infarct le ft basal ganglia anteriorly and right thalamus. Objective Remarks General: This is a 77 year old male patient with right facial droop and difficultly with word finding Cardiac: Regular rate and rhythm Chest: CTA bilaterally. Abd: +BS, soft, non-tender, nondistended. Ext: Extremities without clubbing, cyanosis, or edema. Neuro: Awake and alert. difficultly with word finding and slight right facial droop A/P Problem List: (1) CVA (cerebral vascular accident) ICD Codes: I63.9 - Cerebral infarction, unspecified Status: Acute Plan: CVA - Patient is a 77 y/o male with carotid artery stenosis, chronic kidney disease , CVA in the past with no residual effects, diabetes mellitus, hyperlipidemia, hypertension and peripheral vascular disease. - Patient presents to the emergency department for garbled speech, difficulty speaking, right sided facial droop, unsteady gait x 1 week. - CT the head (01/03)--> moderate to severe white matter ischemic changes. Remote lacunar infarct left basal ganglia anteriorly and right thalamus. - MRI Brain (01/03) --> Multifocal areas of restricted diffusion representing recent ischemia in the left periventricular region and left basal ganglia. Signal change within the left internal carotid artery suggest vascular occlusion. Nonspecific area of enhancement in the left basal ganglia adjacent to the areas of infarct. This could be related to the a recent ischemia but suggest attention to this at follow-up imaging. Severe chronic periventricular white matter changes representing chronic microvascular ischemic change. - MRA Head (01/03) --> High-grade stenosis versus occlusion of the intracranial left internal carotid artery and left A1 segment. There is also minimal flow related enhancement visualized within the left middle cerebral artery branches. Focal area of luminal narrowing in the mid right posterior cerebral artery. The left anterior cerebral artery is filling through the anterior communicating artery. - Neck MRA (01/03) --> Occlusion of the left common carotid artery 1.8 cm from its origin. At least 50% stenosis of the right proximal internal carotid artery at the carotid bulb region. - Patient remained on bedrest with head of bed flat until this morning. Neurology cleared him for OOB. - Pt continued on Aspirin at admission - Continuous telemetry monitoring - Holter monitor --> Pending - 2D echo 01/03/18 --> Estimated ejection fraction in the range of 65-70%, mild concentric LVH, no regional wall motion abnormalities are present, trace mitral valve regurgitation. - Speech therapy recommending reg diet with thin liquids - Appreciate Neurology consultation and recommendations. Pt started patient on Plavix - Resume home BP meds this morning and monitor - Pt has been cleared for discharge by Neurology today - Arrange [facility] nursing and ST as pt refusing any SNF. - PT and OT with no recommendations for home health PT/OT - Pt will need close followup with his PCP, Dr. Mel Arenas, in 1 [address] followup with Dr. Fajardo in 3 weeks. - Pt is high risk for readmission as compliance is questionable HTN - Patient takes amlodipine 10 mg PO daily and lisinopril 10 mg PO daily at home - Resume home meds this morning and monitor Carotid artery disease - Patient's reports he has chronic coronary artery disease and refused treatment in the past - Neck MRA with noted occlusion of the left common carotid artery 1.8 cm from its origin and at least 50% stenosis of the right proximal internal carotid artery at the carotid bulb region. - Patient will need close outpatient follow up of carotid stenosis Diabetes mellitus - Accu-Cheks before meals at bedtime with sliding scale insulin coverage Hyperlipidemia - Continue patient's home atorvastatin 40 mg p.o. nightly and gemfibrozil 600 mg p.o. twice daily - Lipid panel reviewed and reveals triglycerides 163 total cholesterol 142 LDL 65 HDL 44 DVT prophylaxis with SCDs (2) HTN (hypertension) ICD Codes: I10 - Essential (primary) hypertension Assessment and Plan Patient examined. Assessment and plan formulated with Valeri Rae PA-C. I agree with the above. acute cva. left carotid occlusion plavix/asa dc home with [facility]/st. f/u neurology.pcp. Problem Qualifiers (1) CVA (cerebral vascular accident): Qualified Codes: I63.9 - Cerebral infarction, unspecified Valeri Rae Jan 05, 2018 09:48 Victorino Siegel MD Jan 05, 2018 13:58
[2018-01-05 12:14] VITALS: BP 154/72; PULSE 90; RESP 12; TEMP 98.1; O2SAT 95
== END 2018-01-05 14:37 | disposition home or self-care (01) ==
LOC: NEPE 10:24 → NEDA 13:35 → NEPHCDU 14:22
PROVIDERS: ADMIT Hospitalist; ATTEND Hospitalist
DX: I63.9 Cerebral infarction, unspecified (principal); E78.5 Hyperlipidemia, unspecified; R29.6 Repeated falls; I45.10 Unspecified right bundle-branch block; R00.1 Bradycardia, unspecified; Z86.73 Personal history of transient ischemic attack (TIA), and cerebral infarction without residual deficits; N18.9 Chronic kidney disease, unspecified; I65.22 Occlusion and stenosis of left carotid artery; I73.9 Peripheral vascular disease, unspecified; Z87.891 Personal history of nicotine dependence; I25.10 Atherosclerotic heart disease of native coronary artery without angina pectoris; E11.22 Type 2 diabetes mellitus with diabetic chronic kidney disease; Z79.4 Long term (current) use of insulin; I67.82 Cerebral ischemia; I12.9 Hypertensive chronic kidney disease with stage 1 through stage 4 chronic kidney disease, or unspecified chronic kidney disease
CPT/HCPCS: 70450; 70544; 70548; 70553; 80048; 80053; 80061; 81001; 82550; 82607; 82746; 82948; 83735; 84439; 84443; 84484; 85025; 85610; 85730; 92610; 93005; 93225; 93226; 93306; 96125; 96360; 96361; 96372; 97162; 97166; 97535; 99285; A9579; G0378; G8987; G8988; G8996; G8997; J1815; J7030